=== PATIENT | female | born 1995 | race Caucasian/White ===

== ENCOUNTER 2021-10-25 22:16 | Emergency (ER) | payer BC, OTHER ==
[~2021-10-25] VITALS: Ht 160 cm; Wt 56.7 kg
[2021-10-25] MEDS ORDERED: ONDANSETRON 4 MG (ZOFRAN) ORAL DISSOLVE TAB PO ONE (22:45)
[2021-10-25 22:54] LABS: BASOPHILS # (AUTO) 0.2 10^3/uL (0.0-0.1); BASOPHILS % (AUTO) 1 % (0-10); EOSINOPHILS # (AUTO) 0.1 10^3/uL (0.0-0.3); EOSINOPHILS % (AUTO) 1 % (0-10); HEMATOCRIT 38 % (35-52); HEMOGLOBIN 13.5 g/dL (11.5-16.0); LYMPHOCYTES # (AUTO) 5.8 10^3/uL (1.0-4.0); LYMPHOCYTES % (AUTO) 46 % (12-44); MEAN CORPUSCULAR HEMOGLOBIN 32 pg (25-34); MEAN CORPUSCULAR HGB CONC 35 g/dL (32-36); MEAN CORPUSCULAR VOLUME 89 fL (80-99); MEAN PLATELET VOLUME 10.9 fL (9.0-12.2); MONOCYTES # (AUTO) 0.7 10^3/uL (0.0-1.0); MONOCYTES % (AUTO) 6 % (0-12); NEUTROPHILS # (AUTO) 5.9 10^3/uL (1.8-7.8); NEUTROPHILS % (AUTO) 46 % (42-75); PLATELET COUNT 328 10^3/uL (130-400); WHITE BLOOD COUNT 12.7 10^3/uL (4.3-11.0)
[2021-10-25 22:55] LABS: BILIRUBIN,URINE NEGATIVE (NEGATIVE); CLARITY,URINE CLEAR; COLOR,URINE YELLOW; GLUCOSE, URINE (UA) NEGATIVE (NEGATIVE); KETONES,URINE NEGATIVE (NEGATIVE); LEUKOCYTE ESTERASE ,URINE TRACE (NEGATIVE); NITRITE,URINE NEGATIVE (NEGATIVE); PROTEIN,URINE TRACE (NEGATIVE)
[2021-10-25 23:02] LABS: BACTERIA,URINE TRACE /HPF; RBC,URINE 0-2 /HPF; WBC,URINE 0-2 /HPF
[2021-10-25 23:06] LABS: AMPHETAMINE SCREEN, URINE NEGATIVE (NEGATIVE); BARBITURATE SCREEN URINE NEGATIVE (NEGATIVE); BENZODIAZEPINES SCREEN URINE NEGATIVE (NEGATIVE); CANNABINOID SCREEN, URINE POSITIVE (NEGATIVE); COCAINE SCREEN URINE NEGATIVE (NEGATIVE); METHADONE STAT NEGATIVE (NEGATIVE); METHAMPHETAMINE SCREEN URINE S NEGATIVE (NEGATIVE); OPIATE SCREEN URINE NEGATIVE (NEGATIVE); OXYCODONE STAT NEGATIVE (NEGATIVE); PROPOXYPHENE STAT NEGATIVE (NEGATIVE); TRICYCLIC ANTIDEPRESSANTS SCRE NEGATIVE (NEGATIVE)
[2021-10-25 23:06] LABS: ALBUMIN 4.4 GM/DL (3.2-4.5); CHLORIDE 104 MMOL/L (98-107); SODIUM 139 MMOL/L (135-145)
[2021-10-25 23:07] LABS: CALCIUM 8.7 MG/DL (8.5-10.1)
[2021-10-25 23:09] LABS: GLUCOSE 163 MG/DL (70-105); TOTAL PROTEIN 7.2 GM/DL (6.4-8.2)
[2021-10-25 23:10] LABS: BILIRUBIN,TOTAL 0.5 MG/DL (0.1-1.0); CARBON DIOXIDE 19 MMOL/L (21-32)
[2021-10-25 23:12] LABS: ALKALINE PHOSPHATASE 75 U/L (40-136); CREATININE SERUM 0.75 MG/DL (0.60-1.30); GFR ESTIMATED 95
[2021-10-25 23:13] LABS: BUN/CREATININE RATIO 13
[2021-10-25 23:15] LABS: ALANINE AMINOTRANSFERASE 17 U/L (0-55)
[2021-10-25 23:22] LABS: POTASSIUM 2.4 MMOL/L (3.6-5.0)
--- NOTE | 2021-10-25 23:26 | ED Psychosocial ---
General Chief Complaint: Substance Abuse Stated Complaint: ANXIETY Nursing Triage Note: TO ED VIA [facility] AND AMBULATORY FROM AMBULANCE INTO ROOM 3. 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 CALLED EMS BECAUSE SHE FELT ANXIOUS. Source: patient History of Present Illness Date Seen by Provider: Oct 25, 2021 Time Seen by Provider: 22:30 Initial Comments PT ARRIVES VIA EMS FROM HOME PT STATES AN HOUR AGO, SHE ATE AN "EDIBLE" ( PT THINKS IT WAS MARIJUANA, AND WAS DOING IT "FOR FUN"), AND NOW FEELS FUNNY AND ANXIOUS AND HER HEART IS BEATING FAST STATES SHE HAS NEVER TAKEN AN "EDIBLE" BEFORE, BUT SMOKES MARIJUANA--LAST SMOKED IT 2 DAYS AGO PT STATES HER BOYFRIEND ATE ONE TOO AND HE IS NOT HAVING ANY SYMPTOMS DENIES USING ANY OTHER DRUGS DENIES ANY ALCOHOL USE TONIGHT NO CHEST PAIN NO SHORTNESS OF BREATH NO SYNCOPE NO PARESTHESIAS OR MOTOR DEFICITS PT BEGAN VOMITING SHORTLY AFTER ARRIVAL, DURING EXAM PCP: BREEZY Allergies and Home Medications Allergies Coded Allergies: No Known Drug Allergies (Unverified , 10/25/21) Patient Home Medication List Home Medication List Reviewed: Yes Review of Systems Constitutional: see HPI EENTM: no symptoms reported Respiratory: no symptoms reported Cardiovascular: see HPI Gastrointestinal: see HPI Genitourinary: no symptoms reported : No LMP: Oct 11, 2021 Control/STD Prophylaxis: BC Pills Musculoskeletal: no symptoms reported Skin: no symptoms reported Psychiatric/Neurological: See HPI, Anxiety Past Yvtwsiv-Vwcwks-Xblnge Hx Patient Social History Tobacco Use?: No Substance use?: Yes Substance type: Marijuana Alcohol Use?: Yes Alcohol Frequency: Several times a month Past Medical History Surgeries: Yes Tonsillectomy Respiratory: No Cardiac: No Neurological: No Reproductive Disorders: No Genitourinary: No Gastrointestinal: No Musculoskeletal: No Endocrine: No HEENT: Yes (S/P TONSILLECTOMY) Tonsilitis Cancer: No Psychosocial: No Integumentary: No Blood Disorders: No Physical Exam Vital Signs - First Documented 10/25/21 22:20 Temp 37.0 Pulse 131 Resp 16 B/P (MAP) 131/75 (93) Pulse Ox 98 O2 Delivery Room Air Capillary Refill : Less Than 3 Seconds Height, Weight, BMI Height: '" Weight: lbs. oz. 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, no motor/sensory deficits, alert, oriented x 3 Behavior/Eye Contact: cooperative, good eye contact Thoughts/Hallucinations: no apparent hallucination Skin: normal color, warm/dry, tattoos/piercings Progress/Results/Core Measures Results/Orders Lab Results Laboratory Tests Test 10/25/21 22:40 10/25/21 22:48 Range/Units White Blood Count 12.7 H 4.3-11.0 10^3/uL Red Blood Count 4.29 3.80-5.11 10^6/uL Hemoglobin 13.5 11.5-16.0 g/dL Hematocrit 38 35-52 % Mean Corpuscular Volume 89 80-99 fL Mean Corpuscular Hemoglobin 32 25-34 pg Mean Corpuscular Hemoglobin Concent 35 32-36 g/dL Red Cell Distribution Width 12.0 10.0-14.5 % Platelet Count 328 130-400 10^3/uL Mean Platelet Volume 10.9 9.0-12.2 fL Immature Granulocyte % (Auto) 0 % Neutrophils (%) (Auto) 46 42-75 % Lymphocytes (%) (Auto) 46 H 12-44 % Monocytes (%) (Auto) 6 0-12 % Eosinophils (%) (Auto) 1 0-10 % Basophils (%) (Auto) 1 0-10 % Neutrophils # (Auto) 5.9 1.8-7.8 10^3/uL Lymphocytes # (Auto) 5.8 H 1.0-4.0 10^3/uL Monocytes # (Auto) 0.7 0.0-1.0 10^3/uL Eosinophils # (Auto) 0.1 0.0-0.3 10^3/uL Basophils # (Auto) 0.2 H 0.0-0.1 10^3/uL Immature Granulocyte # (Auto) 0.0 0.0-0.1 10^3/uL Sodium Level 139 135-145 MMOL/L Potassium Level 2.4 *L 3.6-5.0 MMOL/L Chloride Level 104 98-107 MMOL/L Carbon Dioxide Level 19 L 21-32 MMOL/L Anion Gap 16 H 5-14 MMOL/L Blood Urea Nitrogen 10 7-18 MG/DL Creatinine 0.75 0.60-1.30 MG/DL Estimat Glomerular Filtration Rate 95 BUN/Creatinine Ratio 13 Glucose Level 163 H 70-105 MG/DL Calcium Level 8.7 8.5-10.1 MG/DL Corrected Calcium 8.4 L 8.5-10.1 MG/DL Total Bilirubin 0.5 0.1-1.0 MG/DL Aspartate Amino Transf (AST/SGOT) 21 5-34 U/L Alanine Aminotransferase (ALT/SGPT) 17 0-55 U/L Alkaline Phosphatase 75 40-136 U/L Total Protein 7.2 6.4-8.2 GM/DL Albumin 4.4 3.2-4.5 GM/DL Serum Alcohol < 10 <10 MG/DL Urine Color YELLOW Urine Clarity CLEAR Urine pH 6.0 5-9 Urine Specific [place] 1.025 H 1.016-1.022 Urine Protein TRACE H NEGATIVE Urine Glucose (UA) NEGATIVE NEGATIVE Urine Ketones NEGATIVE NEGATIVE Urine Nitrite NEGATIVE NEGATIVE Urine Bilirubin NEGATIVE NEGATIVE Urine Urobilinogen 0.2 < = 1.0 MG/DL Urine Leukocyte Esterase TRACE H NEGATIVE Urine RBC (Auto) TRACE-I H NEGATIVE Urine RBC 0-2 /HPF Urine WBC 0-2 /HPF Urine Squamous Epithelial Cells 2-5 /HPF Urine Renal Epithelial Cells NONE /HPF Urine Crystals NONE /LPF Urine Bacteria TRACE /HPF Urine Casts NONE /LPF Urine Mucus NEGATIVE /LPF Urine Culture Indicated NO Urine Opiates Screen NEGATIVE NEGATIVE Urine Oxycodone Screen NEGATIVE NEGATIVE Urine Methadone Screen NEGATIVE NEGATIVE Urine Propoxyphene Screen NEGATIVE NEGATIVE Urine Barbiturates Screen NEGATIVE NEGATIVE Ur Tricyclic Antidepressants Screen NEGATIVE NEGATIVE Urine Phencyclidine Screen NEGATIVE NEGATIVE Urine Amphetamines Screen NEGATIVE NEGATIVE Urine Methamphetamines Screen NEGATIVE NEGATIVE Urine Benzodiazepines Screen NEGATIVE NEGATIVE Urine Cocaine Screen NEGATIVE NEGATIVE Urine Cannabinoids Screen POSITIVE H NEGATIVE My Orders Orders - YUSRAAMALIA BowensA K DO Monitor-Rhythm Ecg Trace Only (10/25/21 22:30) Alcohol (10/25/21 22:30) Cbc With Automated Diff (10/25/21 22:30) Comprehensive Metabolic Panel (10/25/21 22:30) Drug Screen Stat (Urine) (10/25/21 22:30) Ua Culture If Indicated (10/25/21 22:30) Ondansetron Oral Dissolve Tab (Zofran (10/25/21 22:45) Urine Bedside (10/25/21 22:55) Potassium Chloride (Tablet) (Klor Con Ta (10/25/21 23:30) Rx-Ondansetron Po (Rx-Zofran Po) (10/25/21 23:30) Medications Given in ED Current Medications Medications Dose Ordered Sig/Rene Route Start Time Stop Time Status Last Admin Dose Admin Ondansetron HCl 8 mg ONCE ONCE PO 10/25/21 22:45 10/25/21 22:46 DC 10/25/21 22:45 8 MG Potassium Chloride 40 meq ONCE ONCE PO 10/25/21 23:30 10/25/21 23:31 DC 10/25/21 23:37 40 MEQ Vital Signs/I&O 10/25/21 22:20 Temp 37.0 Pulse 131 Resp 16 B/P (MAP) 131/75 (93) Pulse Ox 98 O2 Delivery Room Air Blood Pressure Mean: 93 Progress Progress Note : Progress Note PT VOMITED ON ARRIVAL, GIVEN ZOFRAN WITH RESOLUTION OF NAUSEA PT STATES SHE FEELS BETTER LATER, MOM ARRIVES AND IS IN ROOM WITH PATIENT. ANTICIPATED COURSE DISCUSSED, WITH RETURN PRECAUTIONS Departure Impression Primary Impression: Marijuana use Additional Impression: Hypokalemia Disposition: 01 HOME, SELF-CARE Condition: Improved Departure-Patient Inst. Decision time for Depature: 23:24 Referrals: [facility] Patient Instructions: ALCOHOL AND SUBSTANCE ABUSE, Hypokalemia (DC), Marijuana Use and Addiction (DC) Add. Discharge Instructions: LOTS OF CLEAR LIQUIDS NO DRUGS OF ANY KIND!!!! AVOID CAFFEINE, DECONGESTANTS, ENERGY DRINKS, OR ANY OTHER STIMULANTS FOLLOW UP WITH [facility] FOR FURTHER CARE All discharge instructions reviewed with patient and/or family. Voiced understanding. EDIN MENG DO Oct 25, 2021 23:26
[2021-10-25] MEDS ORDERED: KCL 10 MEQ TAB (MICRO K) PO ONE (23:30)
[2021-10-25] MEDS ORDERED: RX-ONDANSETRON 4 MG ODT (ZOFRAN) PPK #4 PO STA (23:30)
[2021-10-25 23:50] VITALS: BP 118/75
== END 2021-10-25 23:51 | disposition home or self-care (01) ==
LOC: EDUNIT# 22:16 → ER 22:18
DX: F12.90 Cannabis use, unspecified, uncomplicated (principal); E87.6 Hypokalemia
CPT/HCPCS: 80053; 80306; 81000; 84703; 85025; 93041; 99283; G0480; 36415; 80320

== ENCOUNTER → 2022-01-18 | Outpatient (CLI) | payer OTHER, BC ==
--- NOTE | 2022-01-18 12:23 | Diagnostic Imaging Report ---
INDICATION: Right thumb pain. TIME OF EXAM: 11:03 AM 3 views of the right thumb were obtained. Metacarpals are intact. The phalanges appear intact. Carpus is unremarkable. No fractures are seen. IMPRESSION: No acute bony abnormality is detected. Dictated by: Dictated on workstation # [id number]
== END ==
LOC: RAD 10:41
PROVIDERS: ATTEND Nurse Practitioner Family
DX: M79.644 Pain in right finger(s) (principal)
CPT/HCPCS: 73130